=== PATIENT | female | born 1975 | race Caucasian/White ===

== ENCOUNTER 2025-08-13 13:47 | Emergency (ER) | payer MEDICAID ==
[~2025-08-13] VITALS: Ht 175.3 cm; Wt 95.0 kg
[~2025-08-13 13:47] MED LIST: CLIN-194 PO; IBUP-2028 PO; LEVO-65 PO
[2025-08-13 13:49] VITALS: TEMP 36.8; O2SAT 98
[2025-08-13 17:03] VITALS: PULSE 86
[2025-08-13] MEDS: KETOROLAC 15MG/ML VIAL IM ONE (17:03)
[2025-08-13] MEDS ORDERED: LIDO-53 TP (18:46)
[2025-08-13] MEDS ORDERED: IBUP-1455 MT (18:46)
[2025-08-13 18:50] VITALS: BP 115/70; RESP 19
[2025-08-13] MEDS: LIDOCAINE 5% PATCH TOP SCH (18:50)
== END 2025-08-13 19:10 | disposition home or self-care (01) ==
LOC: ER 13:54
DX: M79.672 Pain in left foot (principal); M25.562 Pain in left knee; F12.90 Cannabis use, unspecified, uncomplicated; Z79.899 Other long term (current) drug therapy; Z88.0 Allergy status to penicillin; W10.9XXA Fall (on) (from) unspecified stairs and steps, initial encounter; Y93.01 Activity, walking, marching and hiking; Y92.89 Other specified places as the place of occurrence of the external cause; Y99.8 Other external cause status
CPT/HCPCS: 71101; 73562; 73610; 73630; 96372; 99284; J1885; Z7610